=== PATIENT | male | born 1960 | race Caucasian/White ===

== ENCOUNTER 2017-11-09 02:08 | Inpatient (IN) ==
--- NOTE | 2017-11-09 03:19 | ED ---
HPI General Chief complaint: Psychiatric Symptoms Stated complaint: Psych evjessika, Vol Time Seen by Provider: 11/09/17 02:53 Source: patient Mode of arrival: ambulatory Limitations: no limitations History of Present Illness HPI narrative: 57-year-old male with history of depression, currently not on medication, presents emergency department voluntarily for psychiatric evaluation. Patient states that his depression has been worsening over the last year. He has had intermittent fleeting thoughts during that time however they have become more frequent as of late. He states he is out of many different ways to follow through with suicide but he does not have an actual plan. He does report occasional cocaine use. He denies any other illicit drug use. He has no other symptoms to report at this time. Related Data Home Medications Medication Instructions Recorded Confirmed No Known Home Medications 11/09/17 11/09/17 Allergies Allergy/AdvReac Type Severity Reaction Status Date / Time No Known Allergies Allergy Unverified 11/09/17 03:18 Review of Systems ROS: all other systems reviewed are negative [facility] Medical History Medical History Depression (Acute) Surgical History Surgical History No history of previous surgery (Acute) Social History Social History Substance History: Active Abuse and Past History Smoking Status: Current every day smoker Tobacco Type: Cigarettes How Often Do You Have a Drink Containing Alcohol: 2 to 4 times a month Recent Travel in [facility] within the Last 8 Weeks: No Recent Out of Country Travel within the Last 8 Weeks: No Substance Abuse Detail Marijuana: Last Used: 6 MONTHS AGO Crack/Cocaine: Substance Use Status: Active Last Used: 11/08/17 Immunization History Tetanus Immunization: Unsure Hx Influenza Vaccine This Season: No Exam Narrative Exam Narrative: GENERAL: Well-nourished male patient, no acute distress SKIN: Focused skin assessment warm/dry. HEAD: Atraumatic. Normocephalic. EYES: Pupils equal and round. No scleral icterus. No injection or drainage. ENT: No nasal bleeding or discharge. Mucous membranes pink and moist. NECK: Trachea midline. No JVD. CARDIOVASCULAR: Elevated rate and rhythm. No murmur appreciated. RESPIRATORY: No accessory muscle use. Clear to auscultation. Breath sounds equal bilaterally. GASTROINTESTINAL: Abdomen soft, non-tender, nondistended. Hepatic and splenic margins not palpable. MUSCULOSKELETAL: No obvious deformities. No clubbing. No cyanosis. No edema. NEUROLOGICAL: Awake and alert. No obvious cranial nerve deficits. Motor grossly within normal limits. Normal speech. Course Initial Documented Vital Signs Temperature 99.4 F 11/09/17 02:11 Pulse Rate 100 H 11/09/17 02:11 Respiratory Rate 16 11/09/17 02:11 Blood Pressure 166/94 H 11/09/17 02:11 Pulse Oximetry 97 11/09/17 02:11 Last Documented Vital Signs Temperature 99.4 F 11/09/17 02:11 Pulse Rate 100 H 11/09/17 02:11 Respiratory Rate 16 11/09/17 02:11 Blood Pressure 166/94 H 11/09/17 02:11 Pulse Oximetry 97 11/09/17 02:11 Medical Decision Making DOROTHY Attestation DOROTHY supervised visit: No MDM Narrative Medical decision making narrative: 57-year-old male presents emergency department voluntarily for psychiatric evaluation. Patient appears without distress. His vital signs are stable. Lab work is reviewed and without acute concern. Patient is medically cleared to undergo psychiatric screening for further evaluation and disposition. Mental health screening discussed with the patient. Psychiatric screen ordered. Medical Screen Exam Complete: Yes Emergency Medical Condition: Yes Differential Diagnosis Differential Diagnosis: Mood disorder versus personality disorder versus adjustment reaction disorder versus substance abuse Lab Data Lab results reviewed: Yes I reviewed the patient's lab results. Result diagrams: 11/09/17 04:06 11/09/17 04:06 Lab Results 11/09/17 11/09/17 11/09/17 Range/Units 04:06 04:06 04:20 WBC 4.8 (4.0-11.0) th/mm3 RBC 4.20 L (4.50-5.90) mil/mm3 Hgb 14.8 (13.0-17.0) gm/dL Hct 41.1 (39.0-51.0) % MCV 97.9 (80.0-100.0) fL MCH 35.2 H (27.0-34.0) pg MCHC 35.9 (32.0-36.0) % RDW 13.9 (11.6-17.2) % Plt Count 50 L (150-450) th/mm3 MPV 10.2 (7.0-11.0) fL Prelim Diff (Auto) Slide review pending Neut % (Auto) 70.6 H (16.0-70.0) % Lymph % (Auto) 18.6 (9.0-44.0) % [place] % (Auto) 9.4 H (0.0-8.0) % Eos % (Auto) 0.7 (0.0-4.0) % Baso % (Auto) 0.7 (0.0-2.0) % Neut # (Auto) 3.4 (1.8-7.7) th/mm3 Lymph # (Auto) 0.9 L (1.0-4.8) th/mm3 [place] # (Auto) 0.5 (0.0-0.9) th/mm3 Eos # (Auto) 0.0 (0.0-0.4) th/mm3 Baso # (Auto) 0.0 (0.0-0.2) th/mm3 WBC Differential . Diff Scan Auto diff confirmed Differential Comment . Platelet Estimate Low L (Normal) Platelet Morphology Normal (Normal) RBC Morphology Normal (Normal) Sodium 136 (136-145) meq/L Potassium 4.0 (3.5-5.1) meq/L Chloride 100 (98-107) meq/L Carbon Dioxide 26.4 (21.0-32.0) meq/L Anion Gap 10 (5-15) meq/L BUN 14 (7-18) mg/dL Creatinine 1.00 (0.60-1.30) mg/dL Estimated GFR 77 L (>89) mL/min Random Glucose 98 (74-106) mg/dL Calcium 8.7 (8.5-10.1) mg/dL TSH 1.690 (0.358-3.740) uIU/mL Urine Opiates Screen Neg (Neg) Ur Barbiturates Screen Neg (Neg) Ur Amphetamines Screen Neg (Neg) U Benzodiazepines Scrn Neg (Neg) Urine Cocaine Screen Pos H (Neg) U Cannabinoids Screen Neg (Neg) Serum Alcohol Less than 3 (0-5) mg/dL Discharge Plan Discharge Disposition Patient Disposition: 30 Still Patient Discharge Condition Condition: Stable Discharge Details Diagnosis: Adjustment reaction Physicians Team ED Provider: Olena Tolbert ED Midlevel Provider: Ruba Louis Primary Care Provider: Primary Care Leigh Ann Silvestre Rxs /Orders / Referrals /Forms Prescriptions: No Action No Known Home Medications RF: 0 Status ED Status: Medically Cleared
[2017-11-09 04:13] LABS: Baso % (Auto) 0.7 % (0.0-2.0); Eos % (Auto) 0.7 % (0.0-4.0); Hematocrit 41.1 % (39.0-51.0); Hemoglobin 14.8 gm/dL (13.0-17.0); Lymph # (Auto) 0.9 th/mm3 (1.0-4.8); Lymph % (Auto) 18.6 % (9.0-44.0); Mean Corpuscular HGB Conc 35.9 % (32.0-36.0); Mean Corpuscular Hemoglobin 35.2 pg (27.0-34.0); Mean Corpuscular Volume 97.9 fL (80.0-100.0); Mean Platelet Volume 10.2 fL (7.0-11.0); Mono # (Auto) 0.5 th/mm3 (0.0-0.9); Mono % (Auto) 9.4 % (0.0-8.0); Neut # (Auto) 3.4 th/mm3 (1.8-7.7); Neut % (Auto) 70.6 % (16.0-70.0); Platelet Count 50 th/mm3 (150-450); Red Cell Distribution Width 13.9 % (11.6-17.2); White Blood Count 4.8 th/mm3 (4.0-11.0)
[2017-11-09 04:43] LABS: Anion Gap 10 meq/L (5-15); Blood Urea Nitrogen 14 mg/dL (7-18); Calcium 8.7 mg/dL (8.5-10.1); Carbon Dioxide 26.4 meq/L (21.0-32.0); Chloride 100 meq/L (98-107); Glomerular Filtration Rate 77 mL/min (>89); Glucose,Random 98 mg/dL (74-106); Sodium 136 meq/L (136-145)
[2017-11-09 04:49] LABS: Amphetamine Screen,Urine Neg (Neg); Barbiturate Screen,Urine Neg (Neg); Cannabinoid Screen,Urine Neg (Neg); Cocaine Screen,Urine Pos (Neg)
[2017-11-09 04:51] LABS: RBC Morphology Normal (Normal)
[2017-11-09 04:51] LABS: Opiate Screen,Urine Neg (Neg)
[2017-11-09 04:52] LABS: Platelet Morphology Normal (Normal)
[2017-11-09] MEDS ORDERED: Acetaminophen 325 MG Tablet PO PRN (11:12)
[2017-11-09] MEDS ORDERED: Aluminum/Magnesium/Simethacone Susp 30 ML UDC PO PRN (11:12)
--- NOTE | 2017-11-09 14:08 | ED ---
HPI - Psych - General Source: patient Mode of arrival: ambulatory Limitations: no limitations - History of Present Illness MD complaint: suicidal ideation Onset (ago): year(s) Duration: intermittent, getting worse History of same: Yes Relieving factors: medication Exacerbating factors: drug use Context: recent drug abuse, not taking psychiatric medications Associated psychiatric symptoms: suicidal ideation, auditory hallucinations Associated symptoms: denies other symptoms Treatments prior to arrival: none - General Chief Complaint: Psychiatric Symptoms Stated Complaint: Psych eval, Vol Time Seen by Provider: 11/09/17 10:30 - History of Present Illness HPI Narrative: This is a 57-year-old , male who presents to this facility voluntarily reporting suicidal ideation. He is not previously known to this facility. Reviewed electronic medical record, labs, and discussed case with staff. Patient's toxicology screen is positive for cocaine. He was assessed in his room D 41. He was found awake, alert, and oriented x4. His speech is clear, logical, organized, of normal chester and volume. He does speak with a strong accent. He endorses suicidal ideation and states "it has crossed my mind to jump in front of a truck". He denies being homicidal but does endorse intermittent auditory hallucinations. However, he denies visual hallucinations. He does claim he left where he was living because people were "calling me names and saying you are crazy". Not sure if this was a delusion or actually occurred. He does not appear to be schizophrenic however, he could be hypomanic. He self reports a history of anxiety and depression. He advises he is homeless living in his car. He denies any suicidal attempts in his family but does report mental illness. He denies owning a firearm. He denies ever having attempted suicide previously but states is intermittently had the thoughts to harm himself before. He claims to work for [employer]. States that he smokes cigarettes, drinks alcohol a couple of times a week, and uses cocaine sporadically. He is originally from [place]. States that he has "a lot of stuff going on in my mind, I do not know what is wrong with me ". He reports that he previously was on Prozac, Seroquel, and trazodone. (Allyson Raygoza) - Related Data Home Medications Medication Instructions Recorded Confirmed No Known Home Medications 11/09/17 11/09/17 Allergies Allergy/AdvReac Type Severity Reaction Status Date / Time No Known Allergies Allergy Unverified 11/09/17 03:18 Review of Systems All other systems reviewed negative except as stated in [facility] - History History Provided By: Patient - Medical History Medical History: Medical History (Last Reviewed 11/09/17 @ 14:03 by ZAIRE Pruett) Depression - Surgical History Surgical History: Surgical History (Last Reviewed 11/09/17 @ 14:03 by ZAIRE Pruett) No history of previous surgery - Tobacco History Tobacco Use In Past 30 Days: Yes Smoking Status: Current every day smoker Tobacco Type: Cigarettes - Alcohol History How Often Do You Have a Drink Containing Alcohol: 2 to 4 times a month - Substance Use History Substance History: Active Abuse, Past History - Substance Use Type Marijuana Status: Active Last Used: 6 MONTHS AGO Crack/Cocaine Status: Active Last Used: 11/08/17 Reason for Use: Get High Comment: USED TODAY - Travel History Recent Travel in the [facility] Within the Last 8 Weeks: No Recent Travel Out of the Country Within the Last 8 Weeks: No - Immunization History Tetanus Immunization: Unsure Hx Influenza Vaccine This Season: No Psychiatric History - Psychiatric History Psychiatric Treatment History: History of Hospitalization in a Psychiatric Facility History of Inpatient Treatment: Yes Firearms in Home: No - Psychiatric History Claims to have had previous inpatient admissions. (Allyson Raygoza) - Legal History Reports having been to assisted a few times. (Allyson Raygoza) - Family Psychiatric History Denies familial suicide attempts but reports mental illness diagnoses. (Allyson Raygoza) Physical Exam - General Limitations: no limitations General appearance: alert, in no apparent distress - Head Head exam: atraumatic - Psychiatric Psychiatric exam: Present: depressed, anxious Mental Status Examination Appearance: Disheveled Consciousness: Alert Orientation: x4 Motor Activity: Normal gait Speech: Unremarkable Language: Adequate Fund of Knowledge: Adequate Attention and Concentration: Adequate Memory: Unremarkable Mood: Sad, Anxious, Irritable Affect: Irritable, Sad, Anxious Thought Process & Associations: Intact Thought Content: Appropriate Hallucination Type: None Delusion Type: None Suicidal Ideation: Yes Suicidal Plan: Yes Suicidal Intention: No Homicidal Ideation: No Homicidal Plan: No Homicidal Intention: No Insight: Fair Judgment: Impulsive Initial Documented Vital Signs Temperature 99.4 F 11/09/17 02:11 Pulse Rate 100 H 11/09/17 02:11 Respiratory Rate 16 11/09/17 02:11 Blood Pressure 166/94 H 11/09/17 02:11 Pulse Oximetry 97 11/09/17 02:11 Last Documented Vital Signs Temperature 99.4 F 11/09/17 02:11 Pulse Rate 69 11/09/17 06:24 Respiratory Rate 16 11/09/17 06:24 Blood Pressure 138/71 11/09/17 06:24 Pulse Oximetry 96 11/09/17 06:24 MDM - Psych - Differential Diagnosis Likely: suicidal ideation, bipolar disorder, depression - Lab Data Result diagrams: 11/09/17 04:06 11/09/17 04:06 - [facility] Narrative Medical decision making narrative: Given that this patient endorses suicidal ideation "jumping in front of a truck " and that we have not seen him previously at this facility I am admitting him out of an over abundance of caution to a locked psychiatric unit for further evaluation and treatment as deemed necessary. He seems to be depressed but there was some irritability which could be a result of hypomania or cluster B personality traits. He was admitted voluntarily, has signed all the paperwork, and consent was obtained to reinstitute his psychotropic medications as well as for PRN's. (Allyson Raygoza) - Lab Data Lab Results 11/09/17 11/09/17 11/09/17 Range/Units 04:06 04:06 04:20 WBC 4.8 (4.0-11.0) th/mm3 RBC 4.20 L (4.50-5.90) mil/mm3 Hgb 14.8 (13.0-17.0) gm/dL Hct 41.1 (39.0-51.0) % MCV 97.9 (80.0-100.0) fL MCH 35.2 H (27.0-34.0) pg MCHC 35.9 (32.0-36.0) % RDW 13.9 (11.6-17.2) % Plt Count 50 L (150-450) th/mm3 MPV 10.2 (7.0-11.0) fL Prelim Diff (Auto) Slide review pending Neut % (Auto) 70.6 H (16.0-70.0) % Lymph % (Auto) 18.6 (9.0-44.0) % [place] % (Auto) 9.4 H (0.0-8.0) % Eos % (Auto) 0.7 (0.0-4.0) % Baso % (Auto) 0.7 (0.0-2.0) % Neut # (Auto) 3.4 (1.8-7.7) th/mm3 Lymph # (Auto) 0.9 L (1.0-4.8) th/mm3 [place] # (Auto) 0.5 (0.0-0.9) th/mm3 Eos # (Auto) 0.0 (0.0-0.4) th/mm3 Baso # (Auto) 0.0 (0.0-0.2) th/mm3 WBC Differential . Diff Scan Auto diff confirmed Differential Comment . Platelet Estimate Low L (Normal) Platelet Morphology Normal (Normal) RBC Morphology Normal (Normal) Sodium 136 (136-145) meq/L Potassium 4.0 (3.5-5.1) meq/L Chloride 100 (98-107) meq/L Carbon Dioxide 26.4 (21.0-32.0) meq/L Anion Gap 10 (5-15) meq/L BUN 14 (7-18) mg/dL Creatinine 1.00 (0.60-1.30) mg/dL Estimated GFR 77 L (>89) mL/min Random Glucose 98 (74-106) mg/dL Calcium 8.7 (8.5-10.1) mg/dL TSH 1.690 (0.358-3.740) uIU/mL Urine Opiates Screen Neg (Neg) Ur Barbiturates Screen Neg (Neg) Ur Amphetamines Screen Neg (Neg) U Benzodiazepines Scrn Neg (Neg) Urine Cocaine Screen Pos H (Neg) U Cannabinoids Screen Neg (Neg) Serum Alcohol Less than 3 (0-5) mg/dL
--- NOTE | 2017-11-09 14:11 | ED ---
HPI - Psych - General Source: patient Mode of arrival: ambulatory - History of Present Illness Duration: intermittent, getting worse Relieving factors: medication Exacerbating factors: drug use Associated symptoms: denies other symptoms Treatments prior to arrival: none - General Chief Complaint: Psychiatric Symptoms Stated Complaint: Psych eval, Vol Time Seen by Provider: 11/09/17 10:30 - Related Data Home Medications Medication Instructions Recorded Confirmed No Known Home Medications 11/09/17 11/09/17 Allergies Allergy/AdvReac Type Severity Reaction Status Date / Time No Known Allergies Allergy Unverified 11/09/17 03:18 [facility] - History History Provided By: Patient - Medical History Medical History: Medical History (Last Reviewed 11/09/17 @ 14:03 by ZAIRE Pruett) Depression - Surgical History Surgical History: Surgical History (Last Reviewed 11/09/17 @ 14:03 by ZAIRE Pruett) No history of previous surgery - Tobacco History Tobacco Use In Past 30 Days: Yes Smoking Status: Current every day smoker Tobacco Type: Cigarettes - Alcohol History How Often Do You Have a Drink Containing Alcohol: 2 to 4 times a month - Substance Use History Substance History: Active Abuse, Past History - Substance Use Type Marijuana Status: Active Last Used: 6 MONTHS AGO Crack/Cocaine Status: Active Last Used: 11/08/17 Reason for Use: Get High Comment: USED TODAY - Travel History Recent Travel in the [facility] Within the Last 8 Weeks: No Recent Travel Out of the Country Within the Last 8 Weeks: No - Immunization History Tetanus Immunization: Unsure Hx Influenza Vaccine This Season: No Psychiatric History - Psychiatric History Psychiatric Treatment History: History of Hospitalization in a Psychiatric Facility History of Inpatient Treatment: Yes Firearms in Home: No Physical Exam - General Limitations: no limitations General appearance: alert, in no apparent distress Mental Status Examination Appearance: Disheveled Consciousness: Alert Orientation: x4 Motor Activity: Normal gait Speech: Unremarkable Language: Adequate Fund of Knowledge: Adequate Attention and Concentration: Adequate Memory: Unremarkable Mood: Sad, Anxious, Irritable Affect: Irritable, Sad, Anxious Thought Process & Associations: Intact Thought Content: Appropriate Hallucination Type: None Delusion Type: None Suicidal Ideation: Yes Suicidal Plan: Yes Suicidal Intention: No Homicidal Ideation: No Homicidal Plan: No Homicidal Intention: No Insight: Fair Judgment: Impulsive Initial Documented Vital Signs Temperature 99.4 F 11/09/17 02:11 Pulse Rate 100 H 11/09/17 02:11 Respiratory Rate 16 11/09/17 02:11 Blood Pressure 166/94 H 11/09/17 02:11 Pulse Oximetry 97 11/09/17 02:11 Last Documented Vital Signs Temperature 99.4 F 11/09/17 02:11 Pulse Rate 69 11/09/17 06:24 Respiratory Rate 16 11/09/17 06:24 Blood Pressure 138/71 11/09/17 06:24 Pulse Oximetry 96 11/09/17 06:24 MDM - Psych - Diagnosis (1) Depression Status: Acute - Lab Data Result diagrams: 11/09/17 04:06 11/09/17 04:06 - Lab Data Lab Results 11/09/17 11/09/17 11/09/17 Range/Units 04:06 04:06 04:20 WBC 4.8 (4.0-11.0) th/mm3 RBC 4.20 L (4.50-5.90) mil/mm3 Hgb 14.8 (13.0-17.0) gm/dL Hct 41.1 (39.0-51.0) % MCV 97.9 (80.0-100.0) fL MCH 35.2 H (27.0-34.0) pg MCHC 35.9 (32.0-36.0) % RDW 13.9 (11.6-17.2) % Plt Count 50 L (150-450) th/mm3 MPV 10.2 (7.0-11.0) fL Prelim Diff (Auto) Slide review pending Neut % (Auto) 70.6 H (16.0-70.0) % Lymph % (Auto) 18.6 (9.0-44.0) % [place] % (Auto) 9.4 H (0.0-8.0) % Eos % (Auto) 0.7 (0.0-4.0) % Baso % (Auto) 0.7 (0.0-2.0) % Neut # (Auto) 3.4 (1.8-7.7) th/mm3 Lymph # (Auto) 0.9 L (1.0-4.8) th/mm3 [place] # (Auto) 0.5 (0.0-0.9) th/mm3 Eos # (Auto) 0.0 (0.0-0.4) th/mm3 Baso # (Auto) 0.0 (0.0-0.2) th/mm3 WBC Differential . Diff Scan Auto diff confirmed Differential Comment . Platelet Estimate Low L (Normal) Platelet Morphology Normal (Normal) RBC Morphology Normal (Normal) Sodium 136 (136-145) meq/L Potassium 4.0 (3.5-5.1) meq/L Chloride 100 (98-107) meq/L Carbon Dioxide 26.4 (21.0-32.0) meq/L Anion Gap 10 (5-15) meq/L BUN 14 (7-18) mg/dL Creatinine 1.00 (0.60-1.30) mg/dL Estimated GFR 77 L (>89) mL/min Random Glucose 98 (74-106) mg/dL Calcium 8.7 (8.5-10.1) mg/dL TSH 1.690 (0.358-3.740) uIU/mL Urine Opiates Screen Neg (Neg) Ur Barbiturates Screen Neg (Neg) Ur Amphetamines Screen Neg (Neg) U Benzodiazepines Scrn Neg (Neg) Urine Cocaine Screen Pos H (Neg) U Cannabinoids Screen Neg (Neg) Serum Alcohol Less than 3 (0-5) mg/dL
[2017-11-09] MEDS: QUEtiapine 25 MG Tablet PO SCH (21:18)
[2017-11-10 06:57] LABS: Calcium 8.7 mg/dL (8.5-10.1); Carbon Dioxide 26.9 meq/L (21.0-32.0); Potassium 4.2 meq/L (3.5-5.1)
[2017-11-10 06:59] LABS: Chol/HDL Ratio 5.17 Ratio; HDL Cholesterol 35.2 mg/dL (40.0-60.0)
[2017-11-10] MEDS: QUEtiapine 25 MG Tablet PO SCH ×2 (09:50→21:36)
[2017-11-10] MEDS: FLUoxetine 20 MG Capsule PO SCH (09:50)
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
[2017-11-10] MEDS: ARIPiprazole 5 MG Tablet PO SCH ×2 (17:44→21:36)
[2017-11-11] MEDS: FLUoxetine 20 MG Capsule PO SCH (09:46)
[2017-11-11] MEDS: QUEtiapine 25 MG Tablet PO SCH ×2 (09:47→21:33)
[2017-11-11] MEDS: ARIPiprazole 5 MG Tablet PO SCH ×2 (09:52→21:33)
--- NOTE | 2017-11-11 14:21 | P.PNPSY ---
Subjective Remarks: Patient seen in day room with medical student Cassy. Chart reviewed. Patient compliant medication. We discussed placement issues sober living facilities. Patient became somewhat angry and stated that he [facility] not [facility] because [facility] "took too much of my money" when asked what could accomplish here he said "I am stressed" I continue to feel there is a degree of manipulation with this man. Though I feel we should give him a brief amount of time to explore sober living facilities. It is now late Tuesday afternoon. I will give him through the weekend to find a sober living facility. I shared this with him and I told him that he would be discharged on Tuesday 11/14. Patient was not very pleased with my decision. Though now it remains to be seen how much she is willing to work with us Review of Systems All other systems reviewed negative except as stated in HPI Mental Status Examination Appearance: Disheveled Consciousness: Alert Orientation: x4 Motor Activity: Normal gait Speech: Unremarkable Language: Adequate Fund of Knowledge: Adequate Attention and Concentration: Adequate Memory: Unremarkable Mood: Sad (Mildly dysphoric), Irritable Affect: Other (Slight increased range and intensity) Thought Process & Associations: Intact Thought Content: Appropriate Hallucination Type: None, Auditory (Vague history of mother's voice) Delusion Type: None Suicidal Ideation: Yes (Somewhat vague and manipulative though he denies it today) Suicidal Plan: Yes (Somewhat vague and manipulative) Suicidal Intention: No Homicidal Ideation: No Homicidal Plan: No Homicidal Intention: No Insight: Adequate Judgment: Adequate Assessment and Plan - Assessment (1) Cocaine abuse Code(s): F14.10 - Cocaine abuse, uncomplicated Status: Acute (2) Adjustment reaction Code(s): F43.20 - Adjustment disorder, unspecified Status: Acute - Plan Plan: Patient appears somewhat depressed though I feel there is a degree of manipulation with this. There is also some anxiety related to his homelessness. Though he appears to be trying to control the discharge plan. I feel he may benefit from a sober living facility and if refuses when ones available then he will be discharged and will be given over the weekend to accomplish this he will be discharged on 11/14 Justification for Continued Inpatient Stay: At this time patient would decompensate if not placed in an appropriate level of care Discharge Planning: To be determined Request Healthcare Surrogate/Guardian Advocate?: No (2) Adjustment reaction Qualifiers: Adjustment disorder type: with mixed disturbance of emotions and conduct Qualified Code(s): F43.25 - Adjustment disorder with mixed disturbance of emotions and conduct
--- NOTE | 2017-11-11 15:14 | ECG ---
Date Performed: 11/10/2017 Time Performed: 13:26:22 PTAGE: 57 years EKG: Sinus rhythm NORMAL ECG NO PREVIOUS TRACING DOCTOR: Ankita Whiting Interpretating Date/Time 11/11/2017 15:10:08
[2017-11-12] MEDS: FLUoxetine 20 MG Capsule PO SCH (09:08)
[2017-11-12] MEDS: QUEtiapine 25 MG Tablet PO SCH ×2 (09:08→21:13)
[2017-11-12] MEDS: ARIPiprazole 5 MG Tablet PO SCH ×2 (09:08→21:13)
--- NOTE | 2017-11-12 19:41 | P.PNPSY ---
Subjective Remarks: Reviewed electronic medical records and discussed case with staff. Follow-up was conducted in the hallway. Patient reports that he is starting to feel better. He still states he is having difficulty sleeping at night. But he reports that his appetite is much improved. His mood is still somewhat down and his affect is depressed. Mental Status Examination Appearance: Disheveled Consciousness: Alert Orientation: x4 Motor Activity: Normal gait Speech: Unremarkable Language: Adequate Fund of Knowledge: Adequate Attention and Concentration: Adequate Memory: Unremarkable Mood: Sad (Mildly dysphoric), Irritable Affect: Other (Slight increased range and intensity) Thought Process & Associations: Intact Thought Content: Appropriate Hallucination Type: None, Auditory (Vague history of mother's voice) Delusion Type: None Suicidal Ideation: Yes (Somewhat vague and manipulative though he denies it today) Suicidal Plan: Yes (Somewhat vague and manipulative) Suicidal Intention: No Homicidal Ideation: No Homicidal Plan: No Homicidal Intention: No Insight: Adequate Judgment: Adequate Assessment and Plan - Assessment (1) Depression Code(s): F32.9 - Major depressive disorder, single episode, unspecified Status : Acute (2) Adjustment reaction Code(s): F43.20 - Adjustment disorder, unspecified Status: Acute - Plan Plan: Patient will be reevaluated Tuesday by the attending psychiatrist. Continue with current treatment plan. Justification for Continued Inpatient Stay: Moving this patient to a less restrictive environment would likely result in decompensation. Request Healthcare Surrogate/Guardian Advocate?: No (2) Adjustment reaction Qualifiers: Adjustment disorder type: with mixed disturbance of emotions and conduct Qualified Code(s): F43.25 - Adjustment disorder with mixed disturbance of emotions and conduct
[2017-11-13] MEDS: FLUoxetine 20 MG Capsule PO SCH (08:37)
[2017-11-13] MEDS: QUEtiapine 25 MG Tablet PO SCH ×2 (08:37→20:29)
[2017-11-13] MEDS: ARIPiprazole 5 MG Tablet PO SCH ×2 (08:37→20:29)
--- NOTE | 2017-11-13 10:55 | P.PNPSY ---
Subjective Remarks: Reviewed electronic medical records and discussed case with staff. Follow-up was conducted in the patient's room Patient states that he feels alot better , but he has anxiety about his discharge. He is homeless and has been calling sober living locations. He is asking for the address for day labor. He is cooperative and medication compliant. Denies SI/HI. Review of Systems All other systems reviewed negative except as stated in HPI Mental Status Examination Appearance: Appropriate Consciousness: Alert Orientation: x4 Motor Activity: Normal gait Speech: Unremarkable Language: Adequate Fund of Knowledge: Adequate Attention and Concentration: Adequate Memory: Unremarkable Mood: Sad (Mildly dysphoric) Affect: Other (Slight increased range and intensity) Thought Process & Associations: Intact Thought Content: Appropriate Hallucination Type: None, Auditory (Vague history of mother's voice) Delusion Type: None Suicidal Ideation: No (Somewhat vague and manipulative though he denies it today ) Suicidal Plan: No (Somewhat vague and manipulative) Suicidal Intention: No Homicidal Ideation: No Homicidal Plan: No Homicidal Intention: No Insight: Adequate Judgment: Adequate Assessment and Plan - Assessment (1) Depression Code(s): F32.9 - Major depressive disorder, single episode, unspecified Status : Acute - Plan Plan: Patient will be reevaluated Tuesday by the attending psychiatrist. Continue with current treatment plan. Justification for Continued Inpatient Stay: Moving patient to a less restrictive environment may result in his decompensation. Request Healthcare Surrogate/Guardian Advocate?: No
[2017-11-13 17:41] VITALS: O2SAT 94
[2017-11-14 06:09] VITALS: BP 116/56; PULSE 58; RESP 16; TEMP 97.9
[2017-11-14] MEDS: FLUoxetine 20 MG Capsule PO SCH (09:36)
[2017-11-14] MEDS: QUEtiapine 25 MG Tablet PO SCH (09:37)
[2017-11-14] MEDS: ARIPiprazole 5 MG Tablet PO SCH (09:37)
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
== END 2017-11-14 15:00 | disposition home or self-care (01) ==
LOC: NEPD 02:08 → NEDA 11:35 → H260 12:55
PROVIDERS: ADMIT Psychiatry & Neurology Psychiatry; ATTEND Psychiatry & Neurology Psychiatry